=== PATIENT | female | born 1960 | race Hispanic/Latino ===

== ENCOUNTER 2019-01-24 19:03 | Observation (INO) | payer BC, MEDICARE ==
--- NOTE | 2019-01-24 19:24 | Emergency Department Report ---
Blank Doc - Documentation Documentation: 58 y/o female with HTN presents to Ed c/o of chest pain and sob This initial assessment/diagnostic orders/clinical plan/treatment(s) is/are subject to change based on patient's health status, clinical progression and re- assessment by fellow clinical providers in the ED. Further treatment and workup at subsequent clinical providers discretion. Patient/guardians urged not to elope from the ED as their condition may be serious if not clinically assessed and managed. Initial orders include: Cardiac evaluation
[2019-01-24 19:53] LABS: Basophils # (Auto) 0.1 K/mm3 (0.0-0.1); Basophils % (Auto) 0.7 % (0.0-1.8); Eosinophils # (Auto) 0.2 K/mm3 (0.0-0.4); Eosinophils % (Auto) 1.3 % (0.0-4.3); Hematocrit 45.3 % (30.3-42.9); Hemoglobin 14.6 gm/dl (10.1-14.3); Lymphocytes # (Auto) 2.8 K/mm3 (1.2-5.4); Lymphocytes % (Auto) 23.4 % (13.4-35.0); Mean Corpuscular HGB Conc 32 % (30-34); Mean Corpuscular Volume 92 fl (79-97); Monocytes % (Auto) 8.4 % (0.0-7.3); Platelet Count 268 K/mm3 (140-440); Red Cell Distribution Width 16.7 % (13.2-15.2)
[2019-01-24 20:16] LABS: Alanine Aminotransferase 12 units/L (7-56); Albumin 4.3 g/dL (3.9-5); BUN/Creatinine Ratio 14; Blood Urea Nitrogen 13 mg/dL (7-17); Calcium 9.1 mg/dL (8.4-10.2); Hemolysis Index 12
--- NOTE | 2019-01-24 21:32 | Emergency Department Report ---
ED Chest Pain HPI - General Chief Complaint: Chest Pain Stated Complaint: CHEST PAIN/HEADACHE Time Seen by Provider: 01/24/19 19:22 Source: patient Mode of arrival: Ambulatory Limitations: No Limitations - History of Present Illness Initial Comments: 58-year-old female with history of polycythemia vera, hypercholesterolemia, hypertension or presents to ED with chest pain 2 days. Patient reports chest pain with associated shortness of breath, palpitations, and headache. Symptoms are worse with exertion. Patient states she was doing yard work today when she experienced symptoms for approximately 20 minutes. She denies any nausea or vomiting. Reports mild swelling in her lower legs. Patient reports tobacco use. Denies any recent stress testing. PCP: Antonia Farr MD Complaint: chest pain -: days(s) (2) Onset: during exertion Pain Location: substernal Pain Radiation: none Severity: moderate Quality: tightness Consistency: intermittent, now resolved Improves With: rest Worsens With: exertion re: dyspnea. denies: nausea, vomting, diaphoresis Other Symptoms: leg swelling, palpitations Treatments Prior to Arrival: aspirin - Related Data Home Medications Medication Instructions Recorded Confirmed Last Taken Aspirin [Adult Aspirin] 81 mg PO DAILY 01/25/19 01/25/19 Unknown Atenolol [Tenormin] 12.5 mg PO DAILY 01/25/19 01/25/19 Unknown Carisoprodol [Soma] 250 mg PO TID 01/25/19 01/25/19 Unknown Simvastatin 20 mg PO HS 01/25/19 01/25/19 Unknown Triamter/Hctz 37.5-25 mg 1 tab PO QDAY 01/25/19 01/25/19 Unknown [Maxzide-25] Allergies Allergy/AdvReac Type Severity Reaction Status Date / Time tape AdvReac Rash Uncoded 01/25/19 01:10 Heart Score - HEART Score History: Moderately suspicious EKG: Normal Age: 45-65 Risk factors: > 3 risk factors or hx of atherosclerotic disease Troponin: < normal limit HEART Score: 4 ED Review of Systems ROS: Stated complaint: CHEST PAIN/HEADACHE Other details as noted in HPI Comment: All other systems reviewed and negative Constitutional: denies: chills, fever Respiratory: shortness of breath Cardiovascular: chest pain, palpitations Gastrointestinal: denies: abdominal pain, nausea, vomiting Neurological: headache ED Past Medical Hx - Past Medical History Previous Medical History?: Yes Additional medical history: Polycythemia Vera. Sleep Apnea - Surgical History Past Surgical History?: Yes Hx Cholecystectomy: Yes Additional Surgical History: Left kidney removal - Social History Smoking Status: Never Smoker Substance Use Type: None - Medications Home Medications: Home Medications Medication Instructions Recorded Confirmed Last Taken Type Aspirin [Adult Aspirin] 81 mg PO DAILY 01/25/19 01/25/19 Unknown History Atenolol [Tenormin] 12.5 mg PO DAILY 01/25/19 01/25/19 Unknown History Carisoprodol [Soma] 250 mg PO TID 01/25/19 01/25/19 Unknown History Simvastatin 20 mg PO HS 01/25/19 01/25/19 Unknown History Triamter/Hctz 37.5-25 mg 1 tab PO QDAY 01/25/19 01/25/19 Unknown History [Maxzide-25] ED Physical Exam - General Limitations: No Limitations General appearance: alert, in no apparent distress - Head Head exam: Present: atraumatic, normocephalic - Eye Eye exam: Present: normal appearance, PERRL, EOMI - ENT ENT exam: Present: mucous membranes moist - Neck Neck exam: Present: normal inspection - Respiratory Respiratory exam: Present: normal lung sounds bilaterally. Absent: respiratory distress - Cardiovascular Cardiovascular Exam: Present: regular rate, normal rhythm - GI/Abdominal GI/Abdominal exam: Present: soft. Absent: distended, tenderness - Extremities Exam Extremities exam: Present: normal inspection, calf tenderness. Absent: pedal edema - Neurological Exam Neurological exam: Present: alert, oriented X3 - Psychiatric Psychiatric exam: Present: normal affect, normal mood - Skin Skin exam: Present: warm, dry, intact, normal color ED Course Vital Signs 01/24/19 01/24/19 01/24/19 20:05 21:46 22:00 Temperature 98.7 F Pulse Rate 78 51 L 58 L Respiratory 19 12 14 Rate Blood Pressure 115/83 O2 Sat by Pulse 98 99 98 Oximetry 01/24/19 01/24/19 01/24/19 22:16 22:30 22:46 Temperature Pulse Rate 72 Respiratory 12 18 Rate Blood Pressure O2 Sat by Pulse 98 99 100 Oximetry 01/24/19 01/24/19 01/25/19 23:00 23:10 00:09 Temperature Pulse Rate 56 L Respiratory Rate Blood Pressure 127/51 O2 Sat by Pulse 99 99 98 Oximetry ED Medical Decision Making - Lab Data Result diagrams: 01/24/19 19:42 01/24/19 19:29 - EKG Data -: EKG Interpreted by Me EKG shows normal: sinus rhythm, axis, intervals, QRS complexes, ST-T waves Rate: normal - EKG Data Interpretation: no acute changes - Medical Decision Making 58-year-old female smoker with history of polycythemia vera, hypercho lesterolemia, hypertension or presents to ED with exertional chest pain 2 days. EKG and troponin are both normal. Chest x-ray normal. Due to patient's history, will admit for further workup. - Differential Diagnosis ACS, PE, pulmonary edema Critical care attestation.: If time is entered above; I have spent that time in minutes in the direct care of this critically ill patient, excluding procedure time. ED Disposition Clinical Impression: Acute chest pain Disposition: DC-09 OP ADMIT IP TO THIS HOSP Is pt being admited?: Yes Condition: Stable Time of Disposition: 22:42
[2019-01-24 22:16] LABS: INR 1.01 (0.87-1.13)
[2019-01-24 22:17] LABS: Partial Thromboplastin Time 27.9 Sec. (24.2-36.6)
--- NOTE | 2019-01-24 22:20 | XRay Report ---
CHEST 2 VIEWS INDICATION / CLINICAL INFORMATION: Chest Pain. COMPARISON: None available. FINDINGS: SUPPORT DEVICES: None. HEART / MEDIASTINUM: The heart size and pulmonary vasculature are normal. The aorta is normal in arie yara. LUNGS / PLEURA: There is minimal linear opacity in the right lateral lung base. The lungs are otherwi se clear. No pneumothorax. ADDITIONAL FINDINGS: No significant additional findings. IMPRESSION: Minimal right basilar subsegmental atelectasis. Signer Name: Tera Mcnair MD Signed: 01/24/2019 10:16 PM Workstation Name: [id number]
[2019-01-24] MEDS ORDERED: ASPIRIN 325 MG TAB PO ONE (22:43)
--- NOTE | 2019-01-25 | History and Physical Report ---
History of Present Illness Date of examination: 01/24/19 History of present illness: 58 year-old woman history of PCV comes emergency room with complaints of chest pain and left chest that started 2 days ago which she is unable to describe, intermittent every 5 minutes, worse with activity, intensity 5/10, no radiation, relieve with pain medications. Admits to shortness of breath, palpitation, nausea. She states that her lidar technician wants to keep her hematocrit at 45, she saw her primary care physician 2 days ago, lab work was done which shows she had a hematocrit of 46 review Of Systems: Constitutional: no weight loss, fever, chills Ears, eyes, nose, mouth and throat: no nasal congestion, no nasal discharge, no sinus pressure, blurry vision, diplopia Neck: No neck pain or rigidity. Cardiovascular: No palpitations Respiratory: No cough Gastrointestinal: No hematochezia, abdominal pain Genitourinary : no dysuria, frequency , hematuria Musculoskeletal: no muscle ache , joint pain Integumentary: no rash, no pruritis Neurological: no parathesias, focal weakness Endocrine: no cold or heat intolerance, no polyuria or polydipsia Hematologic/Lymphatic: no easy bruising, no easy bleeding, no gland swelling Allergic/Immunologic: no urticaria, no angioedema. PAST MEDICAL HISTORY:PCV PAST SURGICAL HISTORY: Cholecystectomy FAMILY HISTORY:hypertension, diabetes SOCIAL HISTORY: Denies tobacco, drugs, alcohol Medications and Allergies Allergies Allergy/AdvReac Type Severity Reaction Status Date / Time tape AdvReac Rash Uncoded 01/25/19 01:10 Home Medications Medication Instructions Recorded Confirmed Last Taken Type Aspirin [Adult Aspirin] 81 mg PO DAILY 01/25/19 01/25/19 Unknown History Atenolol [Tenormin] 12.5 mg PO DAILY 01/25/19 01/25/19 Unknown History Carisoprodol [Soma] 250 mg PO TID 01/25/19 01/25/19 Unknown History Simvastatin 20 mg PO HS 01/25/19 01/25/19 Unknown History Triamter/Hctz 37.5-25 mg 1 tab PO QDAY 01/25/19 01/25/19 Unknown History [Maxzide-25] Exam - Physical Exam Narrative exam: General Apperance: The patient sitting in bed no acute distress HEENT: Normocephalic, atraumatic. Pupils equally round and reactive to light, extraocular movement intact, and no sclericterus or JVD or thyromegaly or nodule. Neck supple, no carotid bruit, mucous membranes moist, no exudate or erythema Heart: S1-S2, regular is rhythm Lungs: Clear to auscultation bilaterally, breathing comfortable Abdomen: Positive bowel sounds, soft, nontender, nondistended, no organomegaly Extremities: No edema cyanosis clubbing Skin: no rash, nodule, warm and dry Neuro:CN 2 -12 intact, motor/sensory intact, speech is fluent - Constitutional Vitals: Temp Pulse Resp BP Pulse Ox 98.7 F 78 19 115/83 98 01/24/19 20:05 01/24/19 20:05 01/24/19 20:05 01/24/19 20:05 01/24/19 20:05 Results - Labs CBC & Chem 7: 01/24/19 19:42 01/24/19 19:29 Labs: Abnormal lab results 01/24/19 01/24/19 Range/Units 19:29 19:42 WBC 11.8 H (4.5-11.0) K/mm3 Hgb 14.6 H (10.1-14.3) gm/dl Hct 45.3 H (30.3-42.9) % RDW 16.7 H (13.2-15.2) % [place] % (Auto) 8.4 H (0.0-7.3) % [place] # 1.0 H (0.0-0.8) K/mm3 Seg Neutrophils # 7.8 H (1.8-7.7) K/mm3 Glucose 124 H (65-100) mg/dL Assessment and Plan Asessment Chest pain PCV Plan Admit to medicine Check cardiac enzymes,stress test Consults hematology, start aspirin, IV morphine DVT prophalaxis
[2019-01-25] MEDS ORDERED: MORPHINE 2 MG/1 ML INJ IV PRN (01:46)
[2019-01-25] MEDS ORDERED: ACETAMINOPHEN 325 MG TAB PO PRN (01:46)
[2019-01-25] MEDS ORDERED: ONDANSETRON 4 MG/2 ML INJ IV PRN (01:46)
[2019-01-25 08:15] LABS: Basophils % (Auto) 0.3 % (0.0-1.8); Eosinophils # (Auto) 0.1 K/mm3 (0.0-0.4); Eosinophils % (Auto) 1.4 % (0.0-4.3); Hematocrit 45.8 % (30.3-42.9); Hemoglobin 14.9 gm/dl (10.1-14.3); Lymphocytes % (Auto) 29.7 % (13.4-35.0); Mean Corpuscular HGB Conc 33 % (30-34); Mean Corpuscular Volume 92 fl (79-97); Monocytes # (Auto) 0.7 K/mm3 (0.0-0.8); Monocytes % (Auto) 6.6 % (0.0-7.3); Platelet Count 243 K/mm3 (140-440); Red Blood Count 4.97 M/mm3 (3.65-5.03); Red Cell Distribution Width 17.1 % (13.2-15.2)
[2019-01-25] MEDS ORDERED: REGADENOSON 0.4 MG/5 ML INJ IV ONE ×2 (08:22→08:28)
[2019-01-25 08:51] LABS: BUN/Creatinine Ratio 14; Blood Urea Nitrogen 11 mg/dL (7-17); Hemolysis Index 1
[2019-01-25] MEDS ORDERED: ASPIRIN 325 MG TAB PO SCH (10:00)
[2019-01-25] MEDS ORDERED: ENOXAPARIN 40 MG/0.4 ML INJ SUB-Q SCH (10:00)
[2019-01-25] MEDS ORDERED: ACETAMINOPHEN 325 MG TAB ONE (10:43)
[2019-01-25 11:03] VITALS: BP 113/47
[2019-01-25] MEDS ORDERED: NICOTINE 21 MG/24 HR PATCH TD SCH (13:05)
--- NOTE | 2019-01-25 13:05 | Discharge Summary ---
Providers - Providers Date of Admission: 01/24/19 23:59 Date of discharge: 01/25/19 Attending physician: LD ESCOBEDO 01/25/19 01:46 Consult to Physician [CONS] Routine Comment: Consulting Provider: HALLIE LALA Physician Instructions: Reason For Exam: pcv Primary care physician: ICU RN Hospitalization Condition: Stable Hospital course: Patient is a 58 yo woman with a history of tobacco dependency, polycytomai vera, hypertension and dyslipidemia who presents with Chest pains. Discharge Diagnoses: Chest pains. most likely GERD related if stress test negative Hypertension Tobacco dependency: beauty counselor on stopping, offered nicotine patch, she smokes 1ppd PCV by history Dyslipidemia Disposition: DC- TO HOME OR SELFCARE Time spent for discharge: 34 minutes Core Measure Documentation - Palliative Care Palliative Care/ Comfort Measures: Not Applicable - Core Measures Any of the following diagnoses?: none - VTE Discharge Requirements Deep Vein Thrombosis/Pulmonary Embolism Present on Admission: No Has pt received <5 days of overlap therapy or INR<2.0: No Anticoagulant overlap therapy prescribed at discharge: No Contraindication No Overlap Therapy order at DC: Not Indicated Exam - Physical Exam Narrative exam: Gen: WDWN, NAD, Awake, Alert, Orientated HEENT: NCAT, EOMI, PERRL, OP Clear Neck: supple, no adenopathy, no thyromegaly, no JVD CVS/Heart: RRR, normal S1S2, pulses present bilaterally Chest/Lungs: CTA B, Symmetrical chest expansion, good air entry bilaterally GI/Abdomen: soft, NTND, good bowel sounds, no guarding or rebound /Bladder: no suprapubic tenderness, no CVA or paraspinal tenderness Extermity/Skin: no c/c/e, no obvious rash MSK: FROM x 4 Neuro: CN 2-12 grossly intact, no new focal deficits Psych: calm - Constitutional Vitals: Temp Pulse Resp BP Pulse Ox 98.0 F 60 20 113/47 96 01/25/19 07:46 01/25/19 11:34 01/25/19 11:34 01/25/19 10:39 01/25/19 04:42 Plan Activity: other (no strenous activity unless cleared by PCP) Diet: low salt Special Instructions: smoking cessation Follow up with: JOAQUIN EWING MD [Primary Care Provider] - 3-5 Days HALLIE LALA MD [Staff Physician] - 7 Days MARGO RIGGS MD [Staff Physician] - 7 Days Forms: AMA Form Prescriptions: RX: Nicotine [Habitrol] 21 mg TD QDAY #30 patch Pantoprazole [Protonix] 40 mg PO QDAY #14 tablet
--- NOTE | 2019-01-25 15:39 | Event Note ---
Date: 01/25/19 [id number]
--- NOTE | 2019-01-26 23:57 | Treadmill Report ---
THALLIUM STRESS TEST LEFT VENTRICLE: Left ventricular chamber size is within normal spread. Perfusion study demonstrated normal apical thinning, otherwise homogeneous uptake of the tracer in all segments, no significant defects identified. Gated analysis demonstrates normal left ventricular systolic function, ejection fraction 64%. CONCLUSION: Normal myocardial perfusion study. JOB# [id number] CA/NTS
--- NOTE | 2019-01-31 02:46 | Consultation ---
REFERRED BY: Dr. Butt. REASON FOR CONSULTATION: History of polycythemia, requesting phlebotomy. . HISTORY OF PRESENT ILLNESS: I saw the patient, a 58-year-old female in the medical floor. The patient has a history of polycythemia. I have been following her in the clinic. It is not clear if this is secondary polycythemia. She has a history of sleep apnea and uses CPAP. She has been getting periodic phlebotomy as she feels better. Previous JAK2 was negative in the clinic setting. The patient also has history of renal cell cancer, stage 1 in the past. The patient came to the hospital because of dizziness, chest pain, history of nausea and palpitations. As per the information, the patient saw PCP and hematocrit was 46 and she usually tries to keep the hematocrit below 45. She is requesting me to get phlebotomy done. At this time, no headache, no visual disturbances. No ear discharge, chest pain, shortness of breath or palpitation. Dizziness has improved. No nausea, no vomiting, no fever. PAST MEDICAL HISTORY: As above. History of renal cell cancer many years ago. Renal cell cancer was diagnosed in 2006, stage 1, T1 N0 M0 and status post surgery. The patient also has history of smoking. PAST SURGICAL HISTORY: Gallbladder surgery. FAMILY HISTORY: Hypertension, diabetes. SOCIAL HISTORY: History of smoking. She quit few days ago. No history of alcohol usage. ALLERGIES: TAPE. HOME MEDICATIONS: Included aspirin, atenolol, and simvastatin. PHYSICAL EXAMINATION: VITAL SIGNS: Temperature 97, pulse 52, respirations 18, BP 108/42. HEENT: No pallor, no icterus. NECK: No neck lymph nodes. HEART: S1, S2. LUNGS: Clear to auscultation. ABDOMEN: Soft. EXTREMITIES: No calf tenderness. LABORATORY DATA: White cell 10, hemoglobin 14, MCV 92, hematocrit 45.8, platelets 243, potassium 3.5, creatinine 0.8 and calcium 9. RADIOLOGY: Chest x-ray was done. ASSESSMENT AND PLAN: 1. Erythrocytosis, history of polycythemia, JAK2 was negative in the clinic; however, the patient feels better and has been getting periodic phlebotomy at her request. 2. History of renal cell carcinoma, stage 1, in 2006. 3. History of smoking. Advised to quit. 4. History of dizziness, shortness of breath, chest discomfort. These symptoms have improved. We will follow the patient during inpatient stay and then in the clinic setting. JOB# [id number] NIDIA/NAPOLEON
== END 2019-01-25 14:39 | disposition home or self-care (01) ==
LOC: ED 19:03 → 4A 23:59
PROVIDERS: ADMIT Internal Medicine; ATTEND Internal Medicine
DX: R07.89 Other chest pain (principal); I49.3 Ventricular premature depolarization; E78.5 Hyperlipidemia, unspecified; D45 Polycythemia vera; I10 Essential (primary) hypertension; F17.200 Nicotine dependence, unspecified, uncomplicated; Z90.49 Acquired absence of other specified parts of digestive tract; Z79.82 Long term (current) use of aspirin; Z79.899 Other long term (current) drug therapy; Z91.048 Other nonmedicinal substance allergy status
CPT/HCPCS: 36415; 71046; 78452; 80048; 80053; 84484; 85025; 85379; 85610; 85730; 93005; 93010; 93017; 96372; 96374; 99284; A9502; G0378; J1650; J2270; J2785